=== PATIENT | female | born 1955 | race African-American/Black ===

== ENCOUNTER 2020-08-07 12:45 | Emergency (ER) | payer MEDICAID ==
[~2020-08-07] VITALS: Ht 162.6 cm; Wt 91.0 kg
[2020-08-07 13:49] VITALS: BP 142/98
== END 2020-08-07 13:50 | disposition home or self-care (01) ==
LOC: ER 12:45
DX: F22 Delusional disorders (principal); J45.909 Unspecified asthma, uncomplicated; Z88.6 Allergy status to analgesic agent; Z98.890 Other specified postprocedural states
CPT/HCPCS: 99283